=== PATIENT | male | born 1985 | race Caucasian/White ===

== ENCOUNTER 2016-08-21 22:49 | Emergency (ER) | payer MEDICAID ==
[2016-08-21 23:03] VITALS: BP 135/94
--- NOTE | 2016-08-21 23:33 | EDM.PDOC ---
ED HPI GENERAL MEDICAL PROBLEM - General Chief Complaint: General Stated Complaint: toothache Time Seen by Provider: 08/21/16 23:25 Source of Information: Reports: Patient, Family, RN Notes Reviewed History Limitations: Reports: No Limitations - History of Present Illness INITIAL COMMENTS - FREE TEXT/NARRATIVE: 31-year-old gentleman presents emergency department today complaint of dental pain, he states is been getting worse over the last couple days he does have an appointment next Sunday at the [facility] denies any fevers Right lower jaw Pain Score (Numeric/FACES): 8 - Related Data Allergies Allergy/AdvReac Type Severity Reaction Status Date / Time No Known Allergies Allergy Verified 08/21/16 23:06 Home Meds: Home Meds B Bifidum/B Longum/L Gasseri [Xenapto] 1 cap PO DAILY 10/06/13 [ History] Multivitamin [Multi-Vitamin Daily] 1 each PO DAILY 10/06/13 [History] Omeprazole 20 mg PO DAILY 10/06/13 [History] Folic Acid 1 mg PO DAILY #100 tab 06/26/15 [Rx] azaTHIOprine [Imuran] 50 mg PO TID #90 06/26/15 [Rx] predniSONE [Prednisone] 40 mg PO DAILY #20 tablet 06/26/15 [Rx] Past Medical History Gastrointestinal History: Reports: Chronic Diarrhea, Other (See Below) Other Gastrointestinal History: Ulcerative colitis Musculoskeletal History: Reports: Fracture Other Musculoskeletal History: hx 3 fractures in left foot Psychiatric History: Reports: Anxiety Other Psychiatric History: hx of anxiety off medication for 6 months Hematologic History: Reports: Anemia - Past Surgical History HEENT Surgical History: Reports: Oral Surgery GI Surgical History: Reports: Colonoscopy Social & Family History - Family History Family Medical History: Noncontributory Cardiac: Reports: NE, Other (See Below) Other Cardiac Family History: Heart disease Oncologic: Reports: Colon - Tobacco Use Smoking Status *Q: Never Smoker Second Hand Smoke Exposure: Yes - Caffeine Use Caffeine Use: Reports: Coffee, Energy Drinks, Soda - Alcohol Use Days Per Week of Alcohol Use: 2 Number of Drinks Per Day: 3 Total Drinks Per Week: 6 - Recreational Drug Use Recreational Drug Use: No ED ROS GENERAL - Review of Systems Review Of Systems: See Below Constitutional: Denies: Fever, Chills HEENT: Reports: Dental Pain Respiratory: Reports: No Symptoms Cardiovascular: Reports: No Symptoms GI/Abdominal: Reports: No Symptoms ED EXAM, GENERAL - Physical Exam Exam: See Below Exam Limited By: No Limitations General Appearance: Alert, WD/WN, No Apparent Distress Throat/Mouth: Normal Lips, Normal Gums, Normal Voice, Other (Multiple dental caries) Course - Vital Signs Last Recorded V/S: Last Vital Signs Temp 97.9 F 08/21/16 23:04 Pulse 93 08/21/16 23:04 Resp 16 08/21/16 23:04 BP 135/94 H 08/21/16 23:04 Pulse Ox 98 08/21/16 23:04 Departure - Departure Time of Disposition: 23:32 Disposition: Home, Self-Care 01 Condition: fair Clinical Impression: Dental abscess - Discharge Information Forms: ED Department Discharge Additional Instructions: Take full course of antibiotics, use hydrocodone as needed for pain control in combination with ibuprofen please keep your dental appointment for next Sunday - Assessment/Plan Plan: Assessment Acuity = acute Site and laterality = dental pain concern for development of dental abscess Etiology = dental caries Manifestations = none Location of injury = home Lab values = none Plan Placed on clindamycin 300 mg 4 times a day in combination with hydrocodone total #10 tablets keep dental appointment in 1 week Patient was in agreement with the plan all questions were answered, they were instructed to return to the emergency department or call for worsening symptoms. This note was dictated using [employer] voice recognition software please call with any questions.
== END 2016-08-21 23:47 | disposition home or self-care (01) ==
LOC: JP.ED 22:49
DX: K04.7 Periapical abscess without sinus (principal); F41.9 Anxiety disorder, unspecified; Z98.890 Other specified postprocedural states; Z79.899 Other long term (current) drug therapy
CPT/HCPCS: 99283

== ENCOUNTER 2021-11-28 07:00 | Day surgery (SDC) | payer MEDICAID ==
[2021-11-28] MEDS ORDERED: Midazolam 1 MG/ML 2 ML SDV ONE (07:14)
[2021-11-28] MEDS ORDERED: fentaNYL 100 MCG/2 ML SDV ONE (07:14)
[2021-11-28] MEDS ORDERED: Propofol 200 MG/20 ML SDV ONE ×2 (07:14→08:12)
[2021-11-28] MEDS ORDERED: Lactated Ringers 1,000 ML IV SCH (07:30)
[2021-11-28 10:05] VITALS: BP 101/72; PULSE 52
== END 2021-11-28 10:10 | disposition home or self-care (01) ==
LOC: JP.SDS 07:00
PROVIDERS: ATTEND Family Medicine
DX: K51.90 Ulcerative colitis, unspecified, without complications (principal); D12.5 Benign neoplasm of sigmoid colon; K63.89 Other specified diseases of intestine; K21.9 Gastro-esophageal reflux disease without esophagitis; K44.9 Diaphragmatic hernia without obstruction or gangrene; K31.7 Polyp of stomach and duodenum
CPT/HCPCS: 43239; 45380; 88305; J2250; J2704; J3010; J7120